=== PATIENT | female | born 1995 | race Two or more races ===

== ENCOUNTER 2025-01-14 09:38 | Emergency (ER) | payer OTHER ==
[2025-01-14 09:46] VITALS: BP 107/43; PULSE 64; RESP 18; TEMP 98.5; BMI 24.0
[2025-01-14] MEDS ORDERED: ACETAMINOPHEN 500 MG TABLET (FP) ONE (10:49)
[2025-01-14] MEDS: ACETAMINOPHEN 500 MG TABLET (FP) PO ONE (10:53)
[2025-01-14 12:45] LABS: HIV INTERPRETATION NEGATIVE (NEGATIVE)
== END 2025-01-14 12:34 | disposition home or self-care (01) ==
LOC: JERFT 09:38
DX: R51.9 Headache, unspecified (principal); R42 Dizziness and giddiness; H53.9 Unspecified visual disturbance
CPT/HCPCS: 36415; 70450-TC; 86803; 87389; 99284-25